=== PATIENT | male | born 1970 | race Caucasian/White ===

== ENCOUNTER → 2019-10-21 | Outpatient (CLI) | payer OTHER ==
[~2019-10-21] MED LIST: TAMIFLU 75MG75 MG PO
== END ==
LOC: COL.RAD 08:06
DX: B18.1 Chronic viral hepatitis B without delta-agent (principal)

== ENCOUNTER → 2021-12-01 | Outpatient (CLI) | payer OTHER | LOC: COL.RAD 08:12 | DX: S63.591A Other specified sprain of right wrist, initial encounter (principal) ==

== ENCOUNTER → 2022-01-13 | Outpatient (CLI) | payer OTHER | LOC: COL.RAD 12:47 | DX: S63.8X1A Sprain of other part of right wrist and hand, initial encounter (principal); X58.XXXA Exposure to other specified factors, initial encounter | CPT/HCPCS: A9585; Q9967 ==